=== PATIENT | female | born 1985 | race Hispanic/Latino ===

== ENCOUNTER 2019-09-14 13:53 | Emergency (ER) | payer OTHER ==
[~2019-09-14] VITALS: Ht 165.1 cm; Wt 64.9 kg
[2019-09-14] MEDS ORDERED: ACETAMINOPHEN 325 MG TAB PO ONE (14:15)
[2019-09-14] MEDS ORDERED: ONDANSETRON HCL INJ 2MG/ML 2ML 2 MG/ML VIAL IV PRN (14:15)
[2019-09-14] MEDS ORDERED: FAMOTIDINE 20 MG/2 ML VIAL IV ONE ×2 (14:15→14:52)
--- NOTE | 2019-09-14 14:35 | Diagnostic Imaging Report ---
Chest, PA and lateral. History: Chest pain, cough. Comparison: None available. Discussion: The cardiomediastinal silhouette and pulmonary vasculature are within normal limits. The lungs are clear without evidence of consolidation or effusion. There are no acute osseous abnormalities. IMPRESSION: No acute cardiopulmonary abnormality. Signed by: Eliazar Hinojosa MD on 09/14/2019 2:32 PM
[2019-09-14] MEDS ORDERED: ONDANSETRON HCL INJ 2MG/ML 2ML 2 MG/ML VIAL ONE (14:52)
[2019-09-14] MEDS ORDERED: ACETAMINOPHEN 325 MG TAB ONE (14:52)
== END 2019-09-14 15:18 | disposition home or self-care (01) ==
LOC: FSED 13:53
DX: R07.89 Other chest pain (principal); R05 Cough; J30.1 Allergic rhinitis due to pollen
CPT/HCPCS: 71046; 93005; 99283; J2405